=== PATIENT | female | born 1950 | race Caucasian/White ===

== ENCOUNTER 2016-11-30 19:57 | Emergency (ER) | payer OTHER ==
[2016-11-30 20:47] LABS: BASOPHILS % 0.6 (0.0-1.5); EOSINOPHILS % 1.2 % (0.0-6.8); MEAN CORPUSCULAR VOLUME 89.9 fl (80.0-100.0); MONOCYTES % 6.4 % (0.0-11.0); NEUTROPHILS # 3.8 # k/uL (1.4-7.7)
[2016-11-30 20:54] LABS: eGFR (African) > 60; eGFR (Non-African) > 60
[2016-11-30] MEDS: NAPROXEN 250 MG TABLET PO ONE (22:15)
[2016-11-30 22:57] VITALS: BP 154/81
[2016-12-01 05:42] LABS: APPEARANCE,URINE CLEAR (CLEAR); COLOR,URINE YELLOW (YELLOW); OCCULT BLOOD,URINE NEGATIVE (NEGATIVE); PH URINE 5.5 (5.0 - 8.0); UROBILINOGEN URINE 0.2 Eu (0.2-1.0)
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
== END 2016-11-30 22:26 | disposition home or self-care (01) ==
LOC: ED 19:57
DX: S19.80XA Other specified injuries of unspecified part of neck, initial encounter (principal); V44.5XXA Car driver injured in collision with heavy transport vehicle or bus in traffic accident, initial encounter; Y92.411 Interstate highway as the place of occurrence of the external cause
CPT/HCPCS: 70450; 72125; 80053; 81002; 85025; 85610; 99283; 99284